=== PATIENT | male | born 1985 | race Caucasian/White ===

== ENCOUNTER 2018-09-02 14:05 | Inpatient (IN) | payer OTHER ==
[~2018-09-02] VITALS: Ht 165.1 cm; Wt 54.0 kg
[2018-09-02 14:17] VITALS: Ht 165.1 cm; Wt 54.0 kg
[2018-09-02] MEDS ORDERED: SODIUM CHLORIDE 0.9% 1L BAG IV* STA (14:22)
[2018-09-02] MEDS ORDERED: VANCOMYCIN 1 GM (PMX) 250 ML IVPB ONE (14:30)
[2018-09-02] MEDS ORDERED: CEFEPIME 1GM/50 ML (PMX) 50 ML IVPB ONE (14:30)
[2018-09-02] MEDS ORDERED: SULF1TAB31 PO (15:38)
[2018-09-02] MEDS ORDERED: ABAC1TAB12 PO (15:38)
[2018-09-02] MEDS ORDERED: IBUP-1542 PO (15:39)
[2018-09-02] MEDS ORDERED: HYDR-3980 PO (15:39)
[2018-09-02] MEDS ORDERED: KETOROLAC 15 MG INJ IV STA (16:20)
[2018-09-02] MEDS ORDERED: ACETAMINOPHEN 325 MG TAB PO ONE (16:30)
--- NOTE | 2018-09-02 16:33 | ERD ---
ER Documentation Chief Complaint Chief Complaint COUGH AND SOB X 5 DAYS BACK PAIN HPI This is a 33-year-old male with a past medical history of HIV/AIDS, previous noncompliance with HIV medication resulting in difficulty managing his disease process now, compliant on his medications over the last several months, previous cryptococcal meningitis, who is now presenting with 5 days of fever, chills, full body aches and pains, chest congestion with a nonproductive cough. The patient does also endorse nausea with several episodes of nonbilious nonbloody vomiting. He has had a decreased appetite over the last several days. He de nies any diarrhea. The patient reports that his symptoms are not similar to when he had cryptococcal meningitis. That said, the patient is concerned about a bad infection. His last CD4 count was less than 150. The patient does not endorse any alleviating or exacerbating factors. The patient has had no headache or vision changes. The patient does not endorse neck or back pain. The patient denies lightheadedness or dizziness. The patient has had no chest pain or trouble breathing. The patient denies abdominal pain. The patient denies changes to bowel movements. The patient has had no focal deficits. The patient has had no weakness or numbness or tingling to the face or extremities. ROS All systems reviewed and are negative except as per history of present illness. Medications Home Meds Reported Medications Hydrocodone/Acetaminophen ([place] 10-325 Tablet) 1 Each Tablet, 1 EACH PO NEEDED PRN for PAIN, TAB 09/02/18 Ibuprofen* (Ibuprofen*) 600 Mg Tablet, 600 MG PO NEEDED PRN for PAIN, TAB 09/02/18 Sulfamethoxazole/Trimethoprim* (Bactrim Ds* Tablet) 1 Each Tablet, 2 TAB PO DAILY, TAB 09/02/18 Abacavir/Dolutegravir/Lamivudi (Triumeq Tablet) 1 Each Tablet, 1 EACH PO DAILY, TAB 09/02/18 Allergies Allergies: Coded Allergies: No Known Allergy (Unverified , 09/02/18) PMhx/Soc History of Surgery: Yes (APPEDECTOMY ) Hx Miscellaneous Medical Probl: Yes (MENINGITIS , AIDS ) Hx Alcohol Use: Yes Hx Substance Use: No Hx Tobacco Use: Yes (MARIJUANA ) Smoking Status: Never smoker FmHx Family History: No diabetes Physical Exam Vitals Vital Signs Date Temp Pulse Resp B/P (MAP) Pulse Ox O2 O2 Flow FiO2 Time Delivery Rate 09/02/18 91 14 127/82 100 Room Air 18:29 (97) 09/02/18 99.9 88 17 124/77 100 Room Air 18:09 (93) 09/02/18 99.1 89 17 125/88 100 Room Air 17:39 (100) 09/02/18 99.9 99 17 106/76 100 Room Air 17:00 (86) 09/02/18 101.7 16:34 09/02/18 101.7 110 16 125/85 100 Room Air 16:19 (98) 09/02/18 101.8 126 28 132/87 98 14:17 (102) Physical Exam Const: No apparent distress, well-developed. Cachectic. Head: Normocephalic, Atraumatic Eyes: Normal Conjunctiva. Extraocular movements intact. Pupils equal, round and reactive to light ENT: Normal External Ears, Nose. Dry mucous membranes. Neck: Full range of motion. No meningismus. Resp: Clear to auscultation bilaterally, No wheezes, rales or rhonchi Cardio: Regular rhythm. Tachycardia. No murmurs, rubs or gallops Abd: Soft, non tender, non distended. Normal bowel sounds Skin: No petechiae or rashes Back: No midline tenderness. No CVA tenderness Ext: No cyanosis, or edema Neur: Awake and alert, oriented 4. Cranial nerves intact. No facial droop. Normal strength, sensation and coordination. Psych: Normal Mood and Affect Result Diagram: 09/02/18 1431 09/02/18 1431 Results 24 hrs Laboratory Tests Test 09/02/18 14:31 09/02/18 14:33 09/02/18 16:40 09/02/18 17:46 White Blood Count 9.6 10^3/ul Red Blood Count 4.43 10^6/ul Hemoglobin 13.1 g/dl Hematocrit 39.4 % Mean Corpuscular 88.9 fl Volume Mean Corpuscular 29.6 pg Hemoglobin Mean Corpuscular 33.2 g/dl Hemoglobin Concent Red Cell 13.5 % Distribution Width Platelet Count 96 10^3/UL Mean Platelet 10.4 fl Volume Immature 1.000 % Granulocytes % Neutrophils % 88.1 % Lymphocytes % 5.3 % Monocytes % 5.4 % Eosinophils % 0.0 % Basophils % 0.2 % Nucleated Red Blood 0.0 /100WBC Cells % Immature 0.100 10^3/ul Granulocytes # Neutrophils # 8.4 10^3/ul Lymphocytes # 0.5 10^3/ul Monocytes # 0.5 10^3/ul Eosinophils # 0.0 10^3/ul Basophils # 0.0 10^3/ul Nucleated Red Blood 0.0 10^3/ul Cells # Prothrombin Time 12.2 Sec Prothrombin Time 1.0 Ratio INR International 0.89 Normalized Ratio Activated 32.6 Sec Partial Thromboplas t Time Sodium Level 131 mmol/L Potassium Level 3.5 mmol/L Chloride Level 94 mmol/L Carbon Dioxide 25 mmol/L Level Anion Gap 12 Blood Urea Nitrogen 15 mg/dl Creatinine 0.93 mg/dl Est Glomerular > 60 mL/min Filtrat Rate mL/min Glucose Level 212 mg/dl Calcium Level 8.9 mg/dl Total Bilirubin 0.5 mg/dl Direct Bilirubin 0.00 mg/dl Indirect Bilirubin 0.5 mg/dl Aspartate Amino 94 IU/L Transf (AST/SGOT) Alanine 57 IU/L Aminotransferase (A LT/SGPT) Alkaline 304 IU/L Phosphatase Troponin I < 0.012 ng/ml Total Protein 9.0 g/dl Albumin 4.1 g/dl Globulin 4.90 g/dl Albumin/Globulin 0.83 Ratio POC Venous Lactate 2.1 mmol/L 2.0 mmol/L Lactic Acid Level 1.6 mmol/L Current Medications Medications Dose Sig/Paola Start Time Status Last (Trade) Ordered Route PRN Stop Time Admin Dose Reason Admin Sodium 1,620 ml BOLUS OVER 2 09/02/18 DC 09/02/18 Chloride HOURS STAT 14:22 14:57 (NS) IV* 09/02/18 14:25 Vancomycin 250 ml @ ONCE ONCE 09/02/18 DC 09/02/18 HCl 125 mls/hr IVPB 14:30 15:55 09/02/18 16:29 Cefepime HCl 50 ml @ ONCE ONCE 09/02/18 DC 09/02/18 100 mls/hr IVPB 14:30 14:57 09/02/18 14:59 Ketorolac 15 mg ONCE STAT 09/02/18 DC 09/02/18 Tromethamine IV 16:20 16:33 (Toradol) 09/02/18 16:23 650 mg ONCE ONCE 09/02/18 DC 09/02/18 Acetaminophen PO 16:30 16:34 (Tylenol 09/02/18 16:31 Tab) Fentanyl 25 mcg ONCE ONCE 09/02/18 09/02/18 (Sublimaze) IV 20:00 19:47 09/02/18 20:01 Ondansetron 4 mg ER BRIDGE 09/02/18 HCl (Zofran PRN IV 20:00 Inj) NAUSEA/VOMITI 09/03/18 19:59 NG 650 mg ER BRIDGE 09/02/18 Acetaminophen PRN PO 20:00 (Tylenol .MILD PAIN 09/03/18 19:59 Tab) 1-3 OR TEMP Procedures/MDM MDM The patient's presentation warrants further investigation. Previous medical records, if available, were reviewed. LABS The patient's laboratory testing was obtained and reviewed. No emergent treatment was required unless described below. CBC: No E/o thrombocytopenia. Mild normocytic anemia, not emergent. White count is at 9.6 with a left shift. Given the patient's history of AIDS, I would have expected leukopenia. This could be leukocytosis relative to his baseline. Chemistry: No E/o severe acidosis or alkalosis or renal failure or diabetic ketoacidosis. Leukocytosis, potentially reactive versus related to his HIV medicines. PT/INR: No E/o significant coagulopathy Lactate: E/o severe sepsis Troponin: No E/o acute ischemia Urine: Pending Influenza: Pending CD4: Pending EKG EKG read by me: Rate/Rhythm: Sinus tachycardia at 118 bpm Intervals: Normal [place]: Normal Impression: No evidence of acute ischemia or arrhythmia IMAGING Imaging and Radiology interpretation reviewed. CXR FINDINGS: The heart and mediastinum are within normal limits. No discrete focal consolidation. There is no pleural effusion or pneumothorax. IMPRESSION: No acute cardiopulmonary process. Electronically viewed and signed by Physician Serge on 09/02/2018 14:44 TREATMENT/DISPOSITION The patient presents with fever, tachycardia and a likely elevated white count as the patient does have AIDS and is likely chronically leukopenic. The patient's lactic acid is elevated. He meets criteria for a systemic inflammatory response and severe sepsis. SEPSIS NOTE SIRS Criteria: Fever, tachycardia Infectious source: Unknown End organ damage indicated by: Lactate > 2.0 mmol/L SEPSIS MANAGEMENT Time to recognize sepsis: Upon Arrival Time to recognize severe sepsis: 1433 Time to recognize septic shock: No septic shock at this time. 3 HOUR BUNDLE Blood cultures x 2 before abx: Yes 30 ml/kg NS bolus completed Initial lactate 2.1 Repeat lactate 1.6 SEPTIC SHOCK ASSESSMENT: NO lactic acid > 4.0 NO persistent hypotension (SBP < 90 or 40 mmHg drop, MAP < 65) despite 30 L/kg IV fluid bolus CRITICAL CARE Critical care time 36 minutes Emergent fluid management while maintaining close respiratory support. Provision of immediate and broad-spectrum antibiotic therapy. Simultaneous assessment for possible sources in order to direct targeted therapy. Conside ration for invasive and chemical support to prevent cardiopulmonary collapse. Critical care time is independent of procedures performed. ADMISSION At this time, I feel that the patient requires admission for further evaluation and management. The patient will be admitted to [facility] in accordance with the patient's insurance. The patient was accepted by Dr. Montero at 7:45 PM on September 02, 2018. Disclaimer: Inadvertent spelling and grammatical errors are likely due to EHR/dictation software use and do not reflect on the overall quality of patient care. Note that the electronic time recorded on this note does not necessarily reflect the actual time of the patient encounter. Departure Diagnosis: Primary Impression: Severe sepsis Additional Impressions: Fever Fever type: unspecified Qualified Codes: R50.9 - Fever, unspecified Tachycardia Lactic acidosis Normocytic anemia Hyponatremia Transaminitis History of AIDS Condition: Serious TIA VORA MD Sep 02, 2018 16:33
[2018-09-02] MEDS ORDERED: ONDANSETRON 4 MG INJ IV PRN (20:00)
[2018-09-02] MEDS ORDERED: ACETAMINOPHEN 325 MG TAB PO PRN (20:00)
[2018-09-02] MEDS ORDERED: FENTAnyl 50 MCG/ML VIAL IV ONE (20:00)
[2018-09-02] MEDS ORDERED: ONDANSETRON 4 MG TAB PO PRN (20:30)
[2018-09-02] MEDS ORDERED: NACL 0.9% 3 ML SYG IV SCH (20:30)
[2018-09-02 20:49] VITALS: PULSE 102
[2018-09-02 20:50] VITALS: BP 137/80; PULSE 100; RESP 20
[2018-09-02] MEDS ORDERED: VANCOMYCIN IV PER PHARMACY XX SCH (21:00)
[2018-09-02] MEDS: FAMOTIDINE 20 MG INJ IV SCH (21:53)
[2018-09-02] MEDS: D5-NS + KCL 20 MEQ 1,000 ML IV SCH (21:53)
[2018-09-02] MEDS: ENOXAPARIN 40 MG/0.4 ML SYG SC SCH (22:05)
[2018-09-02] MEDS: HYDROCODONE/APAP (10/325) TAB PO PRN (22:13)
[2018-09-02] MEDS: CEFEPIME 2GM/50 ML (PMX) 50 ML IVPB SCH (22:19)
[2018-09-03] VITALS (11 sets, daily range): BP systolic 119–157; BP diastolic 77–94; PULSE 71–108; RESP 18–20
[2018-09-03] MEDS: VANCOMYCIN 750 MG (PMX) 250 ML IVPB SCH ×2 (00:44→08:48)
[2018-09-03] MEDS: HYDROCODONE/APAP (10/325) TAB PO PRN ×3 (04:15→19:04)
[2018-09-03] MEDS: D5-NS + KCL 20 MEQ 1,000 ML IV SCH ×3 (05:00→21:00)
[2018-09-03] MEDS ORDERED: ACETAMINOPHEN 325 MG TAB PO PRN (07:00)
[2018-09-03] MEDS ORDERED: POTASSIUM CHLORIDE (SR) 20 MEQ TAB PO ONE (08:00)
[2018-09-03] MEDS: FAMOTIDINE 20 MG INJ IV SCH ×2 (08:43→20:56)
[2018-09-03] MEDS: TRIMETHOPRIM/SULFAMETHOX (DS) TAB PO SCH (08:44)
[2018-09-03] MEDS: DOLUTEGRAVIR PO SCH (08:44)
[2018-09-03] MEDS: LAMIVUDINE PO SCH (08:44)
[2018-09-03] MEDS: [UNRECOGNIZED DRUG - OTHER] PO SCH (08:44)
[2018-09-03] MEDS: ENOXAPARIN 40 MG/0.4 ML SYG SC SCH (08:56)
[2018-09-03] MEDS: CEFEPIME 2GM/50 ML (PMX) 50 ML IVPB SCH (11:33)
[2018-09-03] MEDS: PIPER-TAZO 3.375 GM IV (PMX) 100 ML IVPB SCH ×2 (14:15→21:02)
--- NOTE | 2018-09-03 14:19 | HP ---
DATE OF ADMISSION: 09/02/2018 CHIEF COMPLAINT: Fevers and palpitations. HISTORY OF PRESENT ILLNESS: A 33-year-old male with history of AIDS, presented to emergency room wit h complaint of cough of clear phlegm and shortness of breath x5 days. He also reports back pain. Th e patient has had subjective fevers at home. He has associated nausea, but no abdominal pain or vomi ting. No chest pain. The patient was diagnosed with HIV sometime in 2013. He has had Cryptococcal meningitis and respiratory failure in the past. His last CD4 count was less than 150. Initial evalu ation revealed normal white blood cell count. Basic metabolic panel showed potassium of 2.9. Lactic acid was normal. Blood cultures have grown gram-negative rods. PAST MEDICAL HISTORY: 1. AIDS. 2. History of cryptococcal meningitis. 3. History of pneumonia and respiratory failure. MEDICATIONS PRIOR TO ADMISSION: 1. Triumeq. 2. Bactrim. 3. [place]. 3. Ibuprofen. SOCIAL HISTORY: The patient is a homosexual and has partner. He denies tobacco or alcohol use. PHYSICAL EXAMINATION: GENERAL: Well-developed, well-nourished male who is in no apparent distress. VITAL SIGNS: Stable. He is afebrile. HEENT: Extraocular muscles are intact. Pupils are equal and reactive to light bilaterally. Sclerae are anicteric. Oropharynx is clear and moist. NECK: Supple. No JVD, no carotid bruits. LUNGS: Clear to auscultation bilaterally. CARDIAC: Regular rate and rhythm. No murmurs, rubs or gallops. ABDOMEN: Soft, nontender, nondistended. Normoactive bowel sounds. EXTREMITIES: No clubbing, cyanosis or edema. NEUROLOGICAL: Grossly nonfocal. IMAGING: Chest x-ray: No acute cardiopulmonary process. ASSESSMENT: 1. A 33-year-old male with gram-negative rods bacteremia of unclear source. 2. Acquired immunodeficiency syndrome with last CD4 count of less than 150. 3. Hypokalemia. PLAN: 1. Admit to med/surg. 2. Discontinue IV vancomycin and start IV Zosyn. 3. Check final blood culture results. 4. IV consultation was requested. Dictated By: RAJ LOVELL/BETO Conf#: [id number] DID#: [id number] CC: HEATHER TRIVEDI MD;*[facility]*
--- NOTE | 2018-09-03 15:40 | CONS ---
DATE OF ADMISSION: 09/02/2018 DATE OF CONSULTATION: 09/03/2018 TYPE OF CONSULTATION: Infectious disease. REASON FOR CONSULTATION: Antibiotic management. HISTORY OF PRESENT ILLNESS: Jassi Kerr is a 33-year-old male who comes in with cough a nd shortness of breath of 5 days' duration associated with back pain. The patient has a history of H IV/AIDS, previous noncompliance with HIV medication, compliant on his medications over the last sever al months, history of previous Cryptococcal meningitis, now presents with 5 days of chills, full body aches and pains, chest congestion, nonproductive cough, had nausea, several episodes of nonbilious, nonbloody vomiting, decreased appetite in the last several days. He reports that his symptoms are no t similar to when he had Cryptococcal meningitis. He is concerned about infection. His last CD4 cou nt was less than 150. The patient has no headaches or double vision. He denies abdominal pain. PAST MEDICAL HISTORY: Status post appendectomy, history of Cryptococcal meningitis and AIDS. FAMILY HISTORY: Noncontributory. SOCIAL HISTORY: He does drink. He does use marijuana. He does not smoke cigarettes. PHYSICAL EXAMINATION: VITAL SIGNS: T-max of 101.8. SKIN: Without generalized rash. HEENT: Within normal limits. He is cachectic. NECK: Supple. LYMPH NODES: None palpable. CHEST: Decreased breath sounds at the bases. HEART: He is tachycardic. ABDOMEN: Soft, nontender without organosplenomegaly or masses. EXTREMITIES: Without cyanosis, clubbing or edema. RECTAL AND GENITAL: Deferred. NEUROLOGICAL: No focal neurological abnormality. HOSPITAL COURSE: His white count is 9.6, H and H of 13.1 and 39.4, platelet count of 96,000. BUN an d creatinine is 15/0.93. His glucose is . He has 88% neutrophils, no bands. The patient was s tarted on vancomycin and cefepime. Chest x-ray: No acute cardiopulmonary process. IMPRESSION AND PLAN: The patient presents with fever, tachycardia, elevated white count. He has sys temic inflammatory response syndrome. He is on trimethoprim sulfa. He is on Triumeq which is abacav ir, dolutegravir and lamivudine and that should be continued. He also should have a fever workup and his blood cultures, urine, influenza A and B are all pending. His blood cultures are positive for g korey-negative rods which in a sense is a good thing because we can treat that. He was on vancomycin a nd cefepime. He is on Zosyn at the present time along with trimethoprim sulfa and hopefully Triumeq. I will dictate my findings to the hospitalist. Dictated By: JYACE SHEPARD MD, JD/NTS Conf#: [id number] DID#: [id number] CC: HEATHER TRIVEDI MD;*End*
[2018-09-03] MEDS: FLUCONAZOLE 200 MG TAB PO SCH (15:48)
[2018-09-03] MEDS: HYDROmorphONE 0.5 MG/0.5 ML SYG IV PRN ×2 (16:01→20:57)
[2018-09-03] MEDS: ONDANSETRON 4 MG INJ IV PRN (20:56)
[2018-09-03] MEDS ORDERED: FAMOTIDINE 20 MG TAB PO SCH (21:00)
[2018-09-04] VITALS (13 sets, daily range): BP systolic 125–153; BP diastolic 72–91; PULSE 66–87; RESP 18
[2018-09-04] MEDS: ONDANSETRON 4 MG INJ IV PRN (02:40)
[2018-09-04] MEDS: HYDROmorphONE 0.5 MG/0.5 ML SYG IV PRN ×2 (03:17→20:30)
[2018-09-04] MEDS: D5-NS + KCL 20 MEQ 1,000 ML IV SCH ×4 (05:00→20:31)
[2018-09-04] MEDS: PIPER-TAZO 3.375 GM IV (PMX) 100 ML IVPB SCH ×3 (05:04→21:38)
--- NOTE | 2018-09-04 08:25 | PN ---
Date/Time of Note Date/Time of Note DATE: 09/04/18 TIME: 08:23 Subjective Doing well. Back pain is resolved. No abdominal pain, nausea, or vomiting Objective Vitals Vital Signs Date Temp Pulse Resp B/P (MAP) Pulse Ox O2 O2 Flow FiO2 Time Delivery Rate 09/04/18 66 08:12 09/04/18 98.2 18 125/85 95 07:34 (98) 09/04/18 Room Air 04:39 Intake and Output 09/03/18 09/03/18 09/04/18 1515:00 23:00 07:00 IntakeIntake Total 300 ml 300 ml 1925 ml OutputOutput Total 600 ml 2 ml BalanceBalance 300 ml -300 ml 1923 ml Lungs clear to auscultation bilaterally Cardiac regular rate and rhythm Abdomen soft nontender nondistended normoactive bowel sounds Extremities no clubbing cyanosis or edema Neurological nonfocal Results Result Diagram: 09/03/18 0509 09/04/18 0517 Medications Medications Current Medications Acetaminophen/ Hydrocodone Bitart ([place] (10/325)) 1 tab Q6 PRN PO PAIN Last administered on 09/03/18at 19:04; Admin Dose 1 TAB; Start 09/02/18 at 20:30 Trimethoprim/ Sulfamethoxazole (Bactrim (Ds)) 2 tab DAILY PO Last administered on 09/03/18 08:44; Admin Dose 2 TAB; Start 09/03/18 at 09:00 Patient Own Medication 1 ea DAILY PO Last administered on 09/03/18 08:44; Admin Dose 1 EA; Start 09/03/18 at 09:00 IV Flush (NS 3 ml) 3 ml PER PROTOCOL IV ; Start 09/02/18 at 20:30 Enoxaparin Sodium (Lovenox) 40 mg DAILY SC Last administered on 09/02/18at 22:05; Admin Dose 40 MG; Start 09/02/18 at 22:00 Potassium Chloride/Dextrose/ Sod Cl 1,000 ml @ 125 mls/hr Q8H IV Last administered on 09/03/18at 12:47; Admin Dose 125 MLS/HR; Start 09/02/18 at 21:00 Acetaminophen (Tylenol Tab) 650 mg Q6H PRN PO MILD PAIN(1-3)OR ELEVATED TEMP Last administered on 09/04/18at 04:54; Admin Dose 650 MG; Start 09/03/18 at 07:00 Piperacillin Sod/ Tazobactam Sod 100 ml @ 200 mls/hr Q8 IVPB Last administered on 09/04/18at 05:04; Admin Dose 200 MLS/HR; Start 09/03/18 at 14:00 Hydromorphone HCl (Dilaudid) 0.5 mg Q3H PRN IV SEVERE PAIN LEVEL 7-10 Last administered on 09/04/18at 03:17; Admin Dose 0.5 MG; Start 09/03/18 at 13:00 Fluconazole (Diflucan) 400 mg DAILY PO Last administered on 09/03/18at 15:48; Admin Dose 400 MG; Start 09/03/18 at 14:30 Famotidine (Pepcid Iv) 20 mg BID IV Last administered on 09/03/18at 20:56; Admin Dose 20 MG; Start 09/03/18 at 21:00 Ondansetron HCl (Zofran Inj) 4 mg Q4H PRN IV NAUSEA AND/OR VOMITING Last administered on 09/04/18at 02:40; Admin Dose 4 MG; Start 09/03/18 at 20:00 VTE Prophylaxis Risk score (from Nsg)>0 risk: 4 SCD applied (from Nsg): Yes Lines/Catheters IV Catheter Type: Saline Lock Bert[place] in Place: No Assessment/Plan Assessment/Plan 33-year-old male with gram-negative [place] urosepsis AIDS with CD4 count less than 150 History of opportunistic infections Continue IV Zosyn Check final blood and urine culture results Continue antiretroviral Infectious disease follow-up Discharge planning over the weekend RAJ BARAHONA MD Sep 04, 2018 08:25
[2018-09-04] MEDS: ENOXAPARIN 40 MG/0.4 ML SYG SC SCH (09:00)
[2018-09-04] MEDS: LAMIVUDINE PO SCH (09:12)
[2018-09-04] MEDS: TRIMETHOPRIM/SULFAMETHOX (DS) TAB PO SCH (09:12)
[2018-09-04] MEDS: [UNRECOGNIZED DRUG - OTHER] PO SCH (09:12)
[2018-09-04] MEDS: FLUCONAZOLE 200 MG TAB PO SCH (09:12)
[2018-09-04] MEDS: DOLUTEGRAVIR PO SCH (09:12)
[2018-09-04] MEDS: FAMOTIDINE 20 MG INJ IV SCH ×2 (09:12→20:30)
--- NOTE | 2018-09-04 13:54 | CONS ---
Assessment/Plan Assessment/Plan Hospital Course (Demo Recall) Patient is alert feels better now his appetite is back he is in no distress, had a fever of 101.1 this morning but currently afebrile. No labs this morning Microbiology: Blood and urine culture growing gram-negative le[place]. Chest x-ray on admission revealed no acute cardiopulmonary process Antimicrobials: Fluconazole Zosyn, Bactrim, Triumeq Physical examination: This is a wasted well-developed middle-aged man who is alert in no distress. Head atraumatic normocephalic neck is supple chest rise symmetrical breath sounds clear heart S1-S2 abdomen soft bowel sounds present extremities without cyanosis edema Assessment: 1. Sepsis, present on admission 2. Acute pyelonephritis 3. Bacteremia secondary to #2 4. AIDS 5. History of cryptococcal meningitis Plan: The patient is doing much better, continue present care antibiotics, follow final blood cultures, add Zithromax weekly Consultation Date/Type/Reason Admit Date/Time Sep 02, 2018 at 19:41 Initial Consult Date Type of Consult id Date/Time of Note DATE: 09/04/18 TIME: 13:54 Exam/Review of Systems Exam Vitals Vital Signs Date Temp Pulse Resp B/P (MAP) Pulse Ox O2 O2 Flow FiO2 Time Delivery Rate 09/04/18 86 12:10 09/04/18 98.0 18 153/91 95 11:49 (111) 09/04/18 Room Air 04:39 Intake and Output 09/03/18 09/03/18 09/04/18 1515:00 23:00 07:00 IntakeIntake Total 300 ml 300 ml 1925 ml OutputOutput Total 600 ml 2 ml BalanceBalance 300 ml -300 ml 1923 ml Results Result Diagram: 09/03/18 0509 09/04/18 0517 Results 24hrs Laboratory Tests Test 09/04/18 05:17 Sodium Level 134 L Potassium Level 3.2 L Chloride Level 106 Carbon Dioxide Level 22 Anion Gap 6 Blood Urea Nitrogen 5 L Creatinine 0.70 Est Glomerular Filtrat Rate mL/min > 60 Glucose Level 135 Calcium Level 8.5 Medications Medication Current Medications Acetaminophen/ Hydrocodone Bitart ([place] (10/325)) 1 tab Q6 PRN PO PAIN Last administered on 09/03/18at 19:04; Admin Dose 1 TAB; Start 09/02/18 at 20:30 Trimethoprim/ Sulfamethoxazole (Bactrim (Ds)) 2 tab DAILY PO Last administered on 09/04/18 09:12; Admin Dose 2 TAB; Start 09/03/18 at 09:00 Patient Own Medication 1 ea DAILY PO Last administered on 09/04/18 09:12; Admin Dose 1 EA; Start 09/03/18 at 09:00 IV Flush (NS 3 ml) 3 ml PER PROTOCOL IV ; Start 09/02/18 at 20:30 Enoxaparin Sodium (Lovenox) 40 mg DAILY SC Last administered on 09/02/18 22:05; Admin Dose 40 MG; Start 09/02/18 at 22:00 Potassium Chloride/Dextrose/ Sod Cl 1,000 ml @ 125 mls/hr Q8H IV Last administered on 09/04/18 11:04; Admin Dose 125 MLS/HR; Start 09/02/18 at 21:00 Acetaminophen (Tylenol Tab) 650 mg Q6H PRN PO MILD PAIN(1-3)OR ELEVATED TEMP Last administered on 09/04/18 04:54; Admin Dose 650 MG; Start 09/03/18 at 07:00 Piperacillin Sod/ Tazobactam Sod 100 ml @ 200 mls/hr Q8 IVPB Last administered on 09/04/18 05:04; Admin Dose 200 MLS/HR; Start 09/03/18 at 14:00 Hydromorphone HCl (Dilaudid) 0.5 mg Q3H PRN IV SEVERE PAIN LEVEL 7-10 Last administered on 09/04/18 03:17; Admin Dose 0.5 MG; Start 09/03/18 at 13:00 Fluconazole (Diflucan) 400 mg DAILY PO Last administered on 09/04/18 09:12; Admin Dose 400 MG; Start 09/03/18 at 14:30 Famotidine (Pepcid Iv) 20 mg BID IV Last administered on 09/04/18 09:12; Admin Dose 20 MG; Start 09/03/18 at 21:00 Ondansetron HCl (Zofran Inj) 4 mg Q4H PRN IV NAUSEA AND/OR VOMITING Last administered on 09/04/18 02:40; Admin Dose 4 MG; Start 09/03/18 at 20:00 AZALEA HUBER NP Sep 04, 2018 13:54
[2018-09-04] MEDS ORDERED: AZITHROMYCIN 600 MG TAB PO SCH (15:00)
[2018-09-04] MEDS ORDERED: FAMOTIDINE 20 MG TAB PO SCH (21:00)
[2018-09-04] MEDS: HYDROCODONE/APAP (10/325) TAB PO PRN (21:46)
[2018-09-05] VITALS (13 sets, daily range): BP systolic 129–159; BP diastolic 67–94; PULSE 54–87; RESP 18
[2018-09-05] MEDS: D5-NS + KCL 20 MEQ 1,000 ML IV SCH ×3 (05:37→20:48)
[2018-09-05] MEDS: PIPER-TAZO 3.375 GM IV (PMX) 100 ML IVPB SCH ×3 (05:37→23:38)
[2018-09-05] MEDS: TRIMETHOPRIM/SULFAMETHOX (DS) TAB PO SCH (08:04)
[2018-09-05] MEDS: FLUCONAZOLE 200 MG TAB PO SCH (08:04)
[2018-09-05] MEDS: FAMOTIDINE 20 MG INJ IV SCH (08:05)
[2018-09-05] MEDS: LAMIVUDINE PO SCH (08:05)
[2018-09-05] MEDS: DOLUTEGRAVIR PO SCH (08:05)
[2018-09-05] MEDS: [UNRECOGNIZED DRUG - OTHER] PO SCH (08:05)
[2018-09-05] MEDS: ENOXAPARIN 40 MG/0.4 ML SYG SC SCH ×2 (08:08→09:00)
[2018-09-05] MEDS ORDERED: CEFTRIAXONE 1 GM/50 ML (PMX) 50 ML IVPB ONE (10:00)
--- NOTE | 2018-09-05 10:12 | PN ---
Date/Time of Note Date/Time of Note DATE: 09/05/18 TIME: 10:11 Assessment/Plan VTE Prophylaxis Risk score (from Nsg)>0 risk: 3 SCD applied (from Ns): No SCD contraindicated: low risk/ambulating Pharmacological prophylaxis: LMWH Lines/Catheters IV Catheter Type (from [facility]): Peripheral IV Urinary Cath still in place: No Assessment/Plan Assessment/Plan 1. 33-year-old man admitted for nausea and emesis, now doing better. Gram- negative leander urosepsis, now showing ESBL in urine and blood cultures, sensitive only to Zosyn and cefepime. Now day 3 on Zosyn 2. Patient had a >2 sec pause this morning on telemetry, and demonstrated 3rd degree heart block on EKG. Asymptomatic. 3. Chest disoomfort, but it appears to be all costochondritis on exam with diffuse tenderness -- likely secondary to bacteremia 4. AIDS with CD4 count less than 150 cells/ul 5. History of opportunistic infections 6. Hypokalemia last two days 7. Low TSH 8. Palatal petechiiae/purpura -- possible KS, no other bruising seen. Normal platelets. 9. Urosepsis with ESBL. Left CVA tenderness on exam today. Concern for hydronephrosis. * Spoke with Dr. Karen Pang, covering for the [facility], and she will evaluate him today for cardiology. * Recheck electrolytes, including magnesium, STAT. Also CBC and Free T4 * Continue IV Zosyn; will follow-up on ID recommendations from Dr. Fay * Continue Bactrim, fluconazole, weekly azithromycin * Continue antiretroviral -- patient's own Triumeq * Renal ultrasound to eval for left-sided hydronephrosis * Lovenox for DVT prophylaxis; switch famotidine from IV to PO for GI protection * Discharge planning: may require placement for continued IV antibiotics Zahida Montero MD PhD [phone] Result Diagram: 09/03/18 0509 09/04/18 0517 Subjective 24 Hr Interval Summary Free Text/Dictation [facility] Complaining of diffuse chest discomfort this morning, amidst general achiness all over. Some dizziness when he gets up. Not aware of any palpitations lying in bed. No previous cardiac disease history. Still with loose stools, but no blood per rectum. No breakfast this morning, but he ate well yesterday. His partner José was at bedside; he is receiving antibiotics for non-diabetic leg cellulitis. Exam/Review of Systems Exam Vitals Vital Signs Date Temp Pulse Resp B/P (MAP) Pulse Ox O2 O2 Flow FiO2 Time Delivery Rate 09/05/18 72 09:30 09/05/18 98.4 18 147/93 100 Room Air 07:30 (111) Intake and Output 09/04/18 09/04/18 09/05/18 1515:00 23:00 07:00 IntakeIntake Total 360 ml 2300 ml 1900 ml OutputOutput Total 1 ml 4 ml 3 ml BalanceBalance 359 ml 2296 ml 1897 ml Exam GENERAL: Well-developed, well-nourished, mildly uncomfortable-appearing. Afebrile. HEENT: Extraocular muscles are intact. Pupils are equal and reactive to light bilaterally. Sclerae are anicteric. Oropharynx is without ulceration, but he has mild palatal purpura. No thrush. NECK: Supple. No JVD. CHEST: Clear to auscultation bilaterally. Moderate diffuse tenderness of both right and left anterior chest to palpation. CARDIAC: Regular rhythm, normal rate. No murmur. Good peripheral perfusion ABDOMEN: Soft, non-tender, non-distended. Normoactive bowel sounds. UG: Moderate left CVA tenderness EXTREMITIES: No clubbing, cyanosis or edema. No arthritis NEUROLOGICAL: Alert, oriented, cranial nerves intact. Moving all extremities. Intact speech and memory. Appropriate affect. Medications Medication Current Medications Acetaminophen/ Hydrocodone Bitart ([place] (10/325)) 1 tab Q6 PRN PO PAIN Last administered on 09/04/18at 21:46; Admin Dose 1 TAB; Start 09/02/18 at 20:30 Patient Own Medication 1 ea DAILY PO Last administered on 09/05/18at 08:05; Admin Dose 1 EA; Start 09/03/18 at 09:00 IV Flush (NS 3 ml) 3 ml PER PROTOCOL IV ; Start 09/02/18 at 20:30 Enoxaparin Sodium (Lovenox) 40 mg DAILY SC Last administered on 09/05/18at 08:08; Admin Dose 40 MG; Start 09/02/18 at 22:00 Potassium Chloride/Dextrose/ Sod Cl 1,000 ml @ 125 mls/hr Q8H IV Last administered on 09/05/18 05:37; Admin Dose 125 MLS/HR; Start 09/02/18 at 21:00 Acetaminophen (Tylenol Tab) 650 mg Q6H PRN PO MILD PAIN(1-3)OR ELEVATED TEMP Last administered on 09/04/18 04:54; Admin Dose 650 MG; Start 09/03/18 at 07:00 Piperacillin Sod/ Tazobactam Sod 100 ml @ 200 mls/hr Q8 IVPB Last administered on 09/05/18 05:37; Admin Dose 200 MLS/HR; Start 09/03/18 at 14:00 Hydromorphone HCl (Dilaudid) 0.5 mg Q3H PRN IV SEVERE PAIN LEVEL 7-10 Last administered on 09/04/18 20:30; Admin Dose 0.5 MG; Start 09/03/18 at 13:00 Ondansetron HCl (Zofran Inj) 4 mg Q4H PRN IV NAUSEA AND/OR VOMITING Last admini stered on 09/04/18 02:40; Admin Dose 4 MG; Start 09/03/18 at 20:00 Trimethoprim/ Sulfamethoxazole (Bactrim (Ds)) 1 tab DAILY PO Last administered on 09/05/18 08:04; Admin Dose 1 TAB; Start 09/05/18 at 09:00 Azithromycin (Zithromax) 1,200 mg Q7D PO Last administered on 09/04/18 15:17; Admin Dose 1,200 MG; Start 09/04/18 at 15:00 Fluconazole (Diflucan) 200 mg DAILY PO Last administered on 09/05/18 08:04; Admin Dose 200 MG; Start 09/05/18 at 09:00 Famotidine (Pepcid Iv) 20 mg BID IV Last administered on 09/05/18 08:05; Admin Dose 20 MG; Start 09/04/18 at 21:00 Ceftriaxone Sodium 50 ml @ 100 mls/hr ONCE ONCE IVPB ; Start 09/05/18 at 10:00; Stop 09/05/18 at 10:29; Status HEATHER SEBASTIAN M.D. Sep 05, 2018 10:12
[2018-09-05] MEDS: HYDROmorphONE 0.5 MG/0.5 ML SYG IV PRN ×3 (11:09→21:44)
--- NOTE | 2018-09-05 13:04 | CONS ---
Assessment/Plan Assessment/Plan Hospital Course (Demo Recall) Patient is alert looks comfortable still with bilateral flank pain more on the left and difficulty with initiating urination, no fevers overnight. WBC 3.7 platelets 128 neutrophils 55 BUN 4 creatinine 0.64 Microbiology: Blood and urine culture growing E. coli ESBL with good susceptibility to Zosyn. Antimicrobials: Zosyn, fluconazole, Bactrim, Zithromax weekly dose Triumeq Physical examination: This is a wasted well-developed middle-aged man who is alert in no distress. Head atraumatic normocephalic neck is supple chest rise symmetrical breath sounds clear heart S1-S2 abdomen soft bowel sounds present extremities without cyanosis edema Assessment: 1. Sepsis, present on admission 2. Acute pyelonephritis 3. Bacteremia secondary to #2 4. AIDS 5. History of cryptococcal meningitis Plan: Remains stable, on appropriate antibiotic regimen, will repeat blood cultures today, await for clinical improvement. Anticipate treating with current antibiotics to complete 2 weeks. MJ pt Consultation Date/Type/Reason Admit Date/Time Sep 02, 2018 at 19:41 Initial Consult Date Type of Consult id Date/Time of Note DATE: 09/05/18 TIME: 13:02 Exam/Review of Systems Exam Vitals Vital Signs Date Temp Pulse Resp B/P (MAP) Pulse Ox O2 O2 Flow FiO2 Time Delivery Rate 09/05/18 77 12:22 09/05/18 98.1 18 142/90 100 Room Air 11:30 (107) Intake and Output 09/04/18 09/04/18 09/05/18 1515:00 23:00 07:00 IntakeIntake Total 360 ml 2300 ml 1900 ml OutputOutput Total 1 ml 4 ml 3 ml BalanceBalance 359 ml 2296 ml 1897 ml Results Result Diagram: 09/05/18 1118 09/05/18 1118 Results 24hrs Laboratory Tests Test 09/05/18 11:18 White Blood Count 3.7 #L Red Blood Count 3.40 L Hemoglobin 10.1 L Hematocrit 31.0 L Mean Corpuscular Volume 91.2 Mean Corpuscular Hemoglobin 29.7 Mean Corpuscular Hemoglobin Concent 32.6 Red Cell Distribution Width 14.0 Platelet Count 128 #L Mean Platelet Volume 10.7 H Immature Granulocytes % 1.100 H Neutrophils % 55.0 Lymphocytes % 26.8 Monocytes % 15.2 H Eosinophils % 1.6 Basophils % 0.3 Nucleated Red Blood Cells % 0.0 Immature Granulocytes # 0.040 H Neutrophils # 2.0 Lymphocytes # 1.0 Monocytes # 0.6 Eosinophils # 0.1 Basophils # 0.0 Nucleated Red Blood Cells # 0.0 Sodium Level 137 Potassium Level 4.2 Chloride Level 106 Carbon Dioxide Level 22 Anion Gap 9 Blood Urea Nitrogen 4 L Creatinine 0.64 Est Glomerular Filtrat Rate mL/min > 60 Glucose Level 104 Calcium Level 8.4 Magnesium Level 1.7 Free Thyroxine 1.12 Medications Medication Current Medications Acetaminophen/ Hydrocodone Bitart ([place] ()) 1 tab Q6 PRN PO PAIN Last administered on 09/04/18 21:46; Admin Dose 1 TAB; Start 09/02/18 at 20:30 Patient Own Medication 1 ea DAILY PO Last administered on 09/05/18 08:05; Admin Dose 1 EA; Start 09/03/18 at 09:00 IV Flush (NS 3 ml) 3 ml PER PROTOCOL IV ; Start 09/02/18 at 20:30 Enoxaparin Sodium (Lovenox) 40 mg DAILY SC Last administered on 09/02/18at 22:05; Admin Dose 40 MG; Start 09/02/18 at 22:00 Potassium Chloride/Dextrose/ Sod Cl 1,000 ml @ 125 mls/hr Q8H IV Last administered on 09/05/18at 05:37; Admin Dose 125 MLS/HR; Start 09/02/18 at 21:00 Acetaminophen (Tylenol Tab) 650 mg Q6H PRN PO MILD PAIN(1-3)OR ELEVATED TEMP Last administered on 09/04/18at 04:54; Admin Dose 650 MG; Start 09/03/18 at 07:00 Piperacillin Sod/ Tazobactam Sod 100 ml @ 200 mls/hr Q8 IVPB Last administered on 09/05/18 05:37; Admin Dose 200 MLS/HR; Start 09/03/18 at 14:00 Hydromorphone HCl (Dilaudid) 0.5 mg Q3H PRN IV SEVERE PAIN LEVEL 7-10 Last administered on 09/05/18at 11:09; Admin Dose 0.5 MG; Start 09/03/18 at 13:00 Ondansetron HCl (Zofran Inj) 4 mg Q4H PRN IV NAUSEA AND/OR VOMITING Last a dministered on 09/04/18 02:40; Admin Dose 4 MG; Start 09/03/18 at 20:00 Trimethoprim/ Sulfamethoxazole (Bactrim (Ds)) 1 tab DAILY PO Last administered on 09/05/18 08:04; Admin Dose 1 TAB; Start 09/05/18 at 09:00 Azithromycin (Zithromax) 1,200 mg Q7D PO Last administered on 09/04/18at 15:17; Admin Dose 1,200 MG; Start 09/04/18 at 15:00 Fluconazole (Diflucan) 200 mg DAILY PO Last administered on 09/05/18 08:04; Admin Dose 200 MG; Start 09/05/18 at 09:00 Famotidine (Pepcid) 20 mg BID PO ; Start 09/05/18 at 21:00 AZALEA HUBER NP Sep 05, 2018 13:04
[2018-09-05] MEDS ORDERED: MAGNESIUM SULFATE 2 GM/50 ML 50 ML IVPB ONE (19:00)
[2018-09-05] MEDS: ONDANSETRON 4 MG INJ IV PRN (19:15)
--- NOTE | 2018-09-05 19:23 | CONS ---
Assessment/Plan Assessment/Plan Hospital Course (Demo Recall) 33 yo with HIV and sepsis with nausea/vomiting now with bradyarrhythmias. Bradycardia likely secondary to patient discomfort and nausea leading to increased vagal tone and hyopmagnesemia Recommendation: Treat nausea Replete Mg Observe rhythm, it should improve Consultation Date/Type/Reason Admit Date/Time Sep 02, 2018 at 19:41 Date of Consultation: Sep 05, 2018 Type of Consult Cardiology Reason for Consultation bradycardia Requesting Provider: HEATHER TRIVEDI M.D. Date/Time of Note DATE: 09/05/18 TIME: 19:18 Hx of Present Illness 33 yo with HIV admitted with sepsis, who since last night and today has had significant bradycardia. He has been noted to have sinus lj with normal pr intervals, then periods of sinus bradycardia and junctional bradycardia, and possibly short episodes of AV dissociation. He feels very unwell, nausea and vomiting. Also of note Mg is 1.7. Interestingly, on presentation he was tachycardic. Constitutional: poor po Eyes: no complaints ENT: no complaints Respiratory: no complaints Cardiovascular: no complaints Gastrointestinal: diarrhea, nausea, vomiting Genitourinary: no complaints Musculoskeletal: no complaints Skin: no complaints Neurologic: no complaints Endocrine: no complaints Psychological: no complaints Past Medical History Medical History: other (HIV) Home Meds Reported Medications Hydrocodone/Acetaminophen ([place] 10-325 Tablet) 1 Each Tablet, 1 EACH PO NEEDED PRN for PAIN, TAB 09/02/18 Ibuprofen* (Ibuprofen*) 600 Mg Tablet, 600 MG PO NEEDED PRN for PAIN, TAB 09/02/18 Sulfamethoxazole/Trimethoprim* (Bactrim Ds* Tablet) 1 Each Tablet, 2 TAB PO DAILY, TAB 09/02/18 Abacavir/Dolutegravir/Lamivudi (Triumeq Tablet) 1 Each Tablet, 1 EACH PO DAILY, TAB 09/02/18 Medications Current Medications Acetaminophen/ Hydrocodone Bitart ([place] (10/325)) 1 tab Q6 PRN PO PAIN Last administered on 09/04/18at 21:46; Admin Dose 1 TAB; Start 09/02/18 at 20:30 Patient Own Medication 1 ea DAILY PO Last administered on 09/05/18at 08:05; Admin Dose 1 EA; Start 09/03/18 at 09:00 IV Flush (NS 3 ml) 3 ml PER PROTOCOL IV ; Start 09/02/18 at 20:30 Enoxaparin Sodium (Lovenox) 40 mg DAILY SC Last administered on 09/02/18at 22:05; Admin Dose 40 MG; Start 09/02/18 at 22:00 Potassium Chloride/Dextrose/ Sod Cl 1,000 ml @ 125 mls/hr Q8H IV Last administered on 09/05/18 05:37; Admin Dose 125 MLS/HR; Start 09/02/18 at 21:00 Acetaminophen (Tylenol Tab) 650 mg Q6H PRN PO MILD PAIN(1-3)OR ELEVATED TEMP Last administered on 09/04/18 04:54; Admin Dose 650 MG; Start 09/03/18 at 07:00 Piperacillin Sod/ Tazobactam Sod 100 ml @ 200 mls/hr Q8 IVPB Last administered on 09/05/18at 13:04; Admin Dose 200 MLS/HR; Start 09/03/18 at 14:00 Hydromorphone HCl (Dilaudid) 0.5 mg Q3H PRN IV SEVERE PAIN LEVEL 7-10 Last administered on 09/05/18at 16:56; Admin Dose 0.5 MG; Start 09/03/18 at 13:00 Ondansetron HCl (Zofran Inj) 4 mg Q4H PRN IV NAUSEA AND/OR VOMITING Last a dministered on 09/05/18at 19:15; Admin Dose 4 MG; Start 09/03/18 at 20:00 Trimethoprim/ Sulfamethoxazole (Bactrim (Ds)) 1 tab DAILY PO Last administered on 09/05/18 08:04; Admin Dose 1 TAB; Start 09/05/18 at 09:00 Azithromycin (Zithromax) 1,200 mg Q7D PO Last administered on 09/04/18 15:17; Admin Dose 1,200 MG; Start 09/04/18 at 15:00 Fluconazole (Diflucan) 200 mg DAILY PO Last administered on 09/05/18at 08:04; Admin Dose 200 MG; Start 09/05/18 at 09:00 Famotidine (Pepcid) 20 mg BID PO ; Start 09/05/18 at 21:00 Magnesium Sulfate 50 ml @ 25 mls/hr ONCE ONCE IVPB ; Start 09/05/18 at 19:00; Stop 09/05/18 at 20:59 Allergies: Coded Allergies: No Known Allergy (Unverified , 09/02/18) Family History Significant Family History: no pertinent family hx Social History Smoking Status: Former smoker Exam/Review of Systems Vital Signs Vitals Vital Signs Date Temp Pulse Resp B/P (MAP) Pulse Ox O2 O2 Flow FiO2 Time Delivery Rate 09/05/18 61 16:23 09/05/18 98.3 18 142/90 100 Room Air 15:35 (107) Intake and Output 09/04/18 09/04/18 09/05/18 1515:00 23:00 07:00 IntakeIntake Total 360 ml 2300 ml 1900 ml OutputOutput Total 1 ml 4 ml 3 ml BalanceBalance 359 ml 2296 ml 1897 ml Exam Constitutional: alert, oriented, other (thin) Psych: nl mood/affect Head: normocephalic, atraumatic Eyes: nl conjunctiva, EOMI, nl lids, nl sclera ENMT: nl external ears & nose, nl lips & teeth, nl nasal mucosa & septum Neck: supple; No jvd, No bruits Respiratory: clear to auscultation, normal air movement Cardiovascular: regular rate and rhythm, nl pulses; No murmurs/extra sounds Gastrointestinal: soft, nl liver, spleen, non-tender Musculoskeletal: nl extremities to inspection Extremities: normal pulses; No edema Neurological: nl mental status, nl speech Skin: nl turgor; No rash or lesions Labs Result Diagram: 09/05/18 1118 09/05/18 1118 Results 24hrs Laboratory Tests Test 09/05/18 11:18 White Blood Count 3.7 #L Red Blood Count 3.40 L Hemoglobin 10.1 L Hematocrit 31.0 L Mean Corpuscular Volume 91.2 Mean Corpuscular Hemoglobin 29.7 Mean Corpuscular Hemoglobin Concent 32.6 Red Cell Distribution Width 14.0 Platelet Count 128 #L Mean Platelet Volume 10.7 H Immature Granulocytes % 1.100 H Neutrophils % 55.0 Lymphocytes % 26.8 Monocytes % 15.2 H Eosinophils % 1.6 Basophils % 0.3 Nucleated Red Blood Cells % 0.0 Immature Granulocytes # 0.040 H Neutrophils # 2.0 Lymphocytes # 1.0 Monocytes # 0.6 Eosinophils # 0.1 Basophils # 0.0 Nucleated Red Blood Cells # 0.0 Sodium Level 137 Potassium Level 4.2 Chloride Level 106 Carbon Dioxide Level 22 Anion Gap 9 Blood Urea Nitrogen 4 L Creatinine 0.64 Est Glomerular Filtrat Rate mL/min > 60 Glucose Level 104 Calcium Level 8.4 Magnesium Level 1.7 Free Thyroxine 1.12 Imaging Imaging EKG on presentation with sinus tachycardia Telemetry reviewed from today, with nsr, junctional rhythm, and brief av dissociation Medications Medications Current Medications Acetaminophen/ Hydrocodone Bitart ([place] (10)) 1 tab Q6 PRN PO PAIN Last administered on 09/04/18 21:46; Admin Dose 1 TAB; Start 09/02/18 at 20:30 Patient Own Medication 1 ea DAILY PO Last administered on 09/05/18 08:05; Admin Dose 1 EA; Start 09/03/18 at 09:00 IV Flush (NS 3 ml) 3 ml PER PROTOCOL IV ; Start 09/02/18 at 20:30 Enoxaparin Sodium (Lovenox) 40 mg DAILY SC Last administered on 09/02/18at 2 2:05; Admin Dose 40 MG; Start 09/02/18 at 22:00 Potassium Chloride/Dextrose/ Sod Cl 1,000 ml @ 125 mls/hr Q8H IV Last administered on 09/05/18 05:37; Admin Dose 125 MLS/HR; Start 09/02/18 at 21:00 Acetaminophen (Tylenol Tab) 650 mg Q6H PRN PO MILD PAIN(1-3)OR ELEVATED TEMP Last administered on 09/04/18 04:54; Admin Dose 650 MG; Start 09/03/18 at 07:00 Piperacillin Sod/ Tazobactam Sod 100 ml @ 200 mls/hr Q8 IVPB Last administered on 09/05/18 13:04; Admin Dose 200 MLS/HR; Start 09/03/18 at 14:00 Hydromorphone HCl (Dilaudid) 0.5 mg Q3H PRN IV SEVERE PAIN LEVEL 7-10 Last administered on 09/05/18 16:56; Admin Dose 0.5 MG; Start 09/03/18 at 13:00 Ondansetron HCl (Zofran Inj) 4 mg Q4H PRN IV NAUSEA AND/OR VOMITING Last administered on 09/05/18 19:15; Admin Dose 4 MG; Start 09/03/18 at 20:00 Trimethoprim/ Sulfamethoxazole (Bactrim (Ds)) 1 tab DAILY PO Last administered on 09/05/18at 08:04; Admin Dose 1 TAB; Start 09/05/18 at 09:00 Azithromycin (Zithromax) 1,200 mg Q7D PO Last administered on 09/04/18at 15:17; Admin Dose 1,200 MG; Start 09/04/18 at 15:00 Fluconazole (Diflucan) 200 mg DAILY PO Last administered on 09/05/18at 08:04; Admin Dose 200 MG; Start 09/05/18 at 09:00 Famotidine (Pepcid) 20 mg BID PO ; Start 09/05/18 at 21:00 Magnesium Sulfate 50 ml @ 25 mls/hr ONCE ONCE IVPB ; Start 09/05/18 at 19:00; Stop 09/05/18 at 20:59 DESIRAE PAREDES Sep 05, 2018 19:23
[2018-09-05] MEDS: FAMOTIDINE 20 MG TAB PO SCH (20:47)
[2018-09-06] VITALS (14 sets, daily range): BP systolic 122–169; BP diastolic 74–98; PULSE 37–79; RESP 18–20
[2018-09-06] MEDS: PIPER-TAZO 3.375 GM IV (PMX) 100 ML IVPB SCH ×3 (05:34→23:03)
[2018-09-06] MEDS: D5-NS + KCL 20 MEQ 1,000 ML IV SCH ×4 (05:51→21:48)
--- NOTE | 2018-09-06 07:08 | PN ---
Date/Time of Note Date/Time of Note DATE: 09/06/18 TIME: 07:06 Assessment/Plan VTE Prophylaxis Risk score (from Nsg)>0 risk: 0 SCD applied (from Nsg): Yes Pharmacological prophylaxis: LMWH Lines/Catheters IV Catheter Type (from Nrsg): Peripheral IV Urinary Cath still in place: No Assessment/Plan Assessment/Plan 1. 33-year-old man admitted for nausea and emesis, now doing better. Gram- negative leander urosepsis, now showing ESBL in urine and blood cultures, sensitive only to Zosyn and cefepime. Now day 4 on Zosyn. Renal ultrasound yesterday showed no hydronephrosis, despite bilateral flank tenderness on exam today. 2. Patient had a >2 sec pause yesterday on telemetry, with occasional junctional rhythm. But he had sinus bradycardia overnight (low of 37) with no symptoms. My thanks to Dr. Karen Pang for her thorough evaluation, and I agree with her assessment that his underlying nausea with increased vagal tone. 3. Chest disoomfort, but it appears to be all costochondritis on exam with diffuse tenderness -- likely secondary to bacteremia 4. AIDS with CD4 count less than 150 cells/ul 5. History of opportunistic infections 6. Hypokalemia, resolved yesterday 7. Low TSH, but normal free T4 8. Palatal petechiiae/purpura -- possible [place], no other bruising seen. Normal platelets. * Awaiting recheck on electrolytes, including magnesium this morning * Continue IV Zosyn; will follow-up on blood cultures ordered yesterday by Becca and Dr. Fay, with plan to discharge on two weeks of Zosyn. * Continue Bactrim, fluconazole, weekly azithromycin * Continue antiretroviral -- patient's own Triumeq * Renal ultrasound normal, as noted above * Lovenox for DVT prophylaxis; switch famotidine from IV to PO for GI protection * Discharge planning: I spoke with the patient about a plan to place a PICC line tomorrow. Need to discuss utility of SNF placement vs home nursing. Zahida Montero MD PhD [phone] Result Diagram: 09/05/18 1118 09/05/18 1118 Results 24hrs Laboratory Tests Test 09/05/18 11:18 White Blood Count 3.7 #L Red Blood Count 3.40 L Hemoglobin 10.1 L Hematocrit 31.0 L Mean Corpuscular Volume 91.2 Mean Corpuscular Hemoglobin 29.7 Mean Corpuscular Hemoglobin Concent 32.6 Red Cell Distribution Width 14.0 Platelet Count 128 #L Mean Platelet Volume 10.7 H Immature Granulocytes % 1.100 H Neutrophils % 55.0 Lymphocytes % 26.8 Monocytes % 15.2 H Eosinophils % 1.6 Basophils % 0.3 Nucleated Red Blood Cells % 0.0 Immature Granulocytes # 0.040 H Neutrophils # 2.0 Lymphocytes # 1.0 Monocytes # 0.6 Eosinophils # 0.1 Basophils # 0.0 Nucleated Red Blood Cells # 0.0 Sodium Level 137 Potassium Level 4.2 Chloride Level 106 Carbon Dioxide Level 22 Anion Gap 9 Blood Urea Nitrogen 4 L Creatinine 0.64 Est Glomerular Filtrat Rate mL/min > 60 Glucose Level 104 Calcium Level 8.4 Magnesium Level 1.7 Free Thyroxine 1.12 Subjective 24 Hr Interval Summary Free Text/Dictation Feeling a little better, with less nausea. Still with a pressured feeling in his chest. Did not complain of any dizziness today. Partner José is sleeping at bedside. Exam/Review of Systems Exam Vitals Vital Signs Date Temp Pulse Resp B/P (MAP) Pulse Ox O2 O2 Flow FiO2 Time Delivery Rate 09/06/18 99.1 65 18 143/98 100 04:12 (113) 09/05/18 Room Air 15:35 Intake and Output 09/05/18 09/05/18 09/06/18 1515:00 23:00 07:00 IntakeIntake Total 162.5 ml 1300 ml OutputOutput Total 5 ml BalanceBalance 162.5 ml 1295 ml Exam GENERAL: Well-developed, well-nourished, afebrile, and comfortable-appearing. HEENT: Extraocular muscles are intact. Normal pupils. Sclerae are anicteric. NECK: Supple. No JVD. CHEST: Clear to auscultation bilaterally. CARDIAC: Regular rhythm, normal rate. No murmur. Good peripheral perfusion ABDOMEN: Soft, non-tender, non-distended. Normoactive bowel sounds. UG: Moderate CVA tenderness bilaterally EXTREMITIES: No clubbing, cyanosis or edema. No arthritis NEUROLOGICAL: Alert, oriented, cranial nerves intact. Moving all extremities. Intact speech and memory. Appropriate affect. Results Results 24hrs Laboratory Tests Test 09/05/18 11:18 White Blood Count 3.7 #L Red Blood Count 3.40 L Hemoglobin 10.1 L Hematocrit 31.0 L Mean Corpuscular Volume 91.2 Mean Corpuscular Hemoglobin 29.7 Mean Corpuscular Hemoglobin Concent 32.6 Red Cell Distribution Width 14.0 Platelet Count 128 #L Mean Platelet Volume 10.7 H Immature Granulocytes % 1.100 H Neutrophils % 55.0 Lymphocytes % 26.8 Monocytes % 15.2 H Eosinophils % 1.6 Basophils % 0.3 Nucleated Red Blood Cells % 0.0 Immature Granulocytes # 0.040 H Neutrophils # 2.0 Lymphocytes # 1.0 Monocytes # 0.6 Eosinophils # 0.1 Basophils # 0.0 Nucleated Red Blood Cells # 0.0 Sodium Level 137 Potassium Level 4.2 Chloride Level 106 Carbon Dioxide Level 22 Anion Gap 9 Blood Urea Nitrogen 4 L Creatinine 0.64 Est Glomerular Filtrat Rate mL/min > 60 Glucose Level 104 Calcium Level 8.4 Magnesium Level 1.7 Free Thyroxine 1.12 Medications Medication Current Medications Acetaminophen/ Hydrocodone Bitart ([place] ()) 1 tab Q6 PRN PO PAIN Last administered on 09/04/18at 21:46; Admin Dose 1 TAB; Start 09/02/18 at 20:30 Patient Own Medication 1 ea DAILY PO Last administered on 09/05/18at 08:05; Admin Dose 1 EA; Start 09/03/18 at 09:00 IV Flush (NS 3 ml) 3 ml PER PROTOCOL IV ; Start 09/02/18 at 20:30 Enoxaparin Sodium (Lovenox) 40 mg DAILY SC Last administered on 09/02/18at 22:05; Admin Dose 40 MG; Start 09/02/18 at 22:00 Potassium Chloride/Dextrose/ Sod Cl 1,000 ml @ 125 mls/hr Q8H IV Last administered on 09/06/18at 05:51; Admin Dose 125 MLS/HR; Start 09/02/18 at 21:00 Acetaminophen (Tylenol Tab) 650 mg Q6H PRN PO MILD PAIN(1-3)OR ELEVATED TEMP Last administered on 09/04/18at 04:54; Admin Dose 650 MG; Start 09/03/18 at 07:00 Piperacillin Sod/ Tazobactam Sod 100 ml @ 200 mls/hr Q8 IVPB Last administered on 09/06/18 05:34; Admin Dose 200 MLS/HR; Start 09/03/18 at 14:00 Hydromorphone HCl (Dilaudid) 0.5 mg Q3H PRN IV SEVERE PAIN LEVEL 7-10 Last administered on 09/05/18 21:44; Admin Dose 0.5 MG; Start 09/03/18 at 13:00 Ondansetron HCl (Zofran Inj) 4 mg Q4H PRN IV NAUSEA AND/OR VOMITING Last administered on 09/05/18 19:15; Admin Dose 4 MG; Start 09/03/18 at 20:00 Trimethoprim/ Sulfamethoxazole (Bactrim (Ds)) 1 tab DAILY PO Last administered on 09/05/18 08:04; Admin Dose 1 TAB; Start 09/05/18 at 09:00 Azithromycin (Zithromax) 1,200 mg Q7D PO Last administered on 09/04/18 15:17; Admin Dose 1,200 MG; Start 09/04/18 at 15:00 Fluconazole (Diflucan) 200 mg DAILY PO Last administered on 09/05/18 08:04; Admin Dose 200 MG; Start 09/05/18 at 09:00 Famotidine (Pepcid) 20 mg BID PO Last administered on 09/05/18 20:47; Admin Dose 20 MG; Start 09/05/18 at 21:00 HEATHER MONTERO M.D. Sep 06, 2018 07:08
[2018-09-06] MEDS: FAMOTIDINE 20 MG TAB PO SCH ×2 (07:49→21:00)
[2018-09-06] MEDS: ENOXAPARIN 40 MG/0.4 ML SYG SC SCH (07:49)
[2018-09-06] MEDS: FLUCONAZOLE 200 MG TAB PO SCH (08:05)
[2018-09-06] MEDS: TRIMETHOPRIM/SULFAMETHOX (DS) TAB PO SCH (08:05)
[2018-09-06] MEDS: HYDROmorphONE 0.5 MG/0.5 ML SYG IV PRN ×2 (08:05→20:30)
[2018-09-06] MEDS: LAMIVUDINE PO SCH (08:06)
[2018-09-06] MEDS: [UNRECOGNIZED DRUG - OTHER] PO SCH (08:06)
[2018-09-06] MEDS: DOLUTEGRAVIR PO SCH (08:06)
[2018-09-06] MEDS: ONDANSETRON 4 MG INJ IV PRN ×2 (12:01→20:30)
--- NOTE | 2018-09-06 13:18 | CONS ---
Assessment/Plan Assessment/Plan Hospital Course (Demo Recall) Patient is alert looks comfortable still with bilateral flank pain. No fevers Microbiology: Blood and urine culture growing E. coli ESBL with good susceptibility to Zosyn. Repeat bld cx neg Antimicrobials: Zosyn, fluconazole, Bactrim, Zithromax weekly dose Triumeq Physical examination: This is a wasted well-developed middle-aged man who is alert in no distress. Head atraumatic normocephalic neck is supple chest rise symmetrical breath sounds clear heart S1-S2 abdomen soft bowel sounds present extremities without cyanosis edema Assessment: 1. Sepsis, present on admission 2. Acute pyelonephritis 3. Bacteremia secondary to #2 4. AIDS 5. History of cryptococcal meningitis Plan: Remains stable, on appropriate antibiotic regimen, repeat blood cultures negative, continue abx, await for clinical improvement. Consider PICC. Will check with microbiology tomorrow if bld cx sensitive to Invanz DW pt Consultation Date/Type/Reason Admit Date/Time Sep 02, 2018 at 19:41 Initial Consult Date Type of Consult id Requesting Provider: HEATHER TRIVEDI M.D. Date/Time of Note DATE: 09/06/18 TIME: 13:15 Exam/Review of Systems Exam Vitals Vital Signs Date Temp Pulse Resp B/P (MAP) Pulse Ox O2 O2 Flow FiO2 Time Delivery Rate 09/06/18 71 12:00 09/06/18 98.5 20 161/97 100 High Flow 11:35 (118) Intake and Output 09/05/18 09/05/18 09/06/18 1515:00 23:00 07:00 IntakeIntake Total 162.5 ml 1300 ml 600 ml OutputOutput Total 5 ml BalanceBalance 162.5 ml 1295 ml 600 ml Results Result Diagram: 09/05/18 1118 09/05/18 1118 Medications Medication Current Medications Acetaminophen/ Hydrocodone Bitart ([place] (10/325)) 1 tab Q6 PRN PO PAIN Last administered on 09/04/18at 21:46; Admin Dose 1 TAB; Start 09/02/18 at 20:30 Patient Own Medication 1 ea DAILY PO Last administered on 09/06/18at 08:06; Admin Dose 1 EA; Start 09/03/18 at 09:00 IV Flush (NS 3 ml) 3 ml PER PROTOCOL IV ; Start 09/02/18 at 20:30 Enoxaparin Sodium (Lovenox) 40 mg DAILY SC Last administered on 09/02/18 22:05; Admin Dose 40 MG; Start 09/02/18 at 22:00 Potassium Chloride/Dextrose/ Sod Cl 1,000 ml @ 125 mls/hr Q8H IV Last administered on 09/06/18 05:51; Admin Dose 125 MLS/HR; Start 09/02/18 at 21:00 Acetaminophen (Tylenol Tab) 650 mg Q6H PRN PO MILD PAIN(1-3)OR ELEVATED TEMP Last administered on 09/04/18 04:54; Admin Dose 650 MG; Start 09/03/18 at 07:00 Piperacillin Sod/ Tazobactam Sod 100 ml @ 200 mls/hr Q8 IVPB Last administered on 09/06/18 13:06; Admin Dose 200 MLS/HR; Start 09/03/18 at 14:00 Hydromorphone HCl (Dilaudid) 0.5 mg Q3H PRN IV SEVERE PAIN LEVEL 7-10 Last administered on 09/06/18 08:05; Admin Dose 0.5 MG; Start 09/03/18 at 13:00 Ondansetron HCl (Zofran Inj) 4 mg Q4H PRN IV NAUSEA AND/OR VOMITING Last administered on 09/06/18 12:01; Admin Dose 4 MG; Start 09/03/18 at 20:00 Trimethoprim/ Sulfamethoxazole (Bactrim (Ds)) 1 tab DAILY PO Last administered on 09/06/18 08:05; Admin Dose 1 TAB; Start 09/05/18 at 09:00 Azithromycin (Zithromax) 1,200 mg Q7D PO Last administered on 09/04/18 15:17; Admin Dose 1,200 MG; Start 09/04/18 at 15:00 Fluconazole (Diflucan) 200 mg DAILY PO Last administered on 09/06/18 08:05; Admin Dose 200 MG; Start 09/05/18 at 09:00 Famotidine (Pepcid) 20 mg BID PO Last administered on 09/05/18at 20:47; Admin Dose 20 MG; Start 09/05/18 at 21:00 AZALEA HUBER NP Sep 06, 2018 13:18
--- NOTE | 2018-09-06 19:59 | CONS ---
Assessment/Plan Assessment/Plan Hospital Course (Demo Recall) 33 yo with HIV and sepsis with nausea/vomiting with bradyarrhythmias that have resolved with improvement of his nausea. This was vagally mediated. Will sign off. Call if questions arise. Consultation Date/Type/Reason Admit Date/Time Sep 02, 2018 at 19:41 Initial Consult Date 09/05/18 Type of Consult Cardiology Requesting Provider: HEATHER TRIVEDI M.D. Date/Time of Note DATE: 09/06/18 TIME: 19:57 24 HR Interval Summary Free Text/Dictation Patient stating he is feeling better, less nauseated. Telemetry reviewed and he is in NSR at 75 bpm. No bradycardia today. Exam/Review of Systems Vital Signs Vitals Vital Signs Date Temp Pulse Resp B/P (MAP) Pulse Ox O2 O2 Flow FiO2 Time Delivery Rate 09/06/18 70 16:00 09/06/18 98.9 18 127/82 100 Room Air 15:55 (97) Intake and Output 09/05/18 09/05/18 09/06/18 1515:00 23:00 07:00 IntakeIntake Total 162.5 ml 1300 ml 600 ml OutputOutput Total 5 ml BalanceBalance 162.5 ml 1295 ml 600 ml Exam Constitutional: alert, oriented, well developed Head: normocephalic, atraumatic Eyes: nl sclera ENMT: nl external ears & nose Cardiovascular: No murmurs/extra sounds Neurological: nl mental status, nl speech Skin: No rash or lesions Labs Result Diagram: 09/05/18 1118 09/06/18 1448 Results 24hrs Laboratory Tests Test 09/06/18 14:48 Sodium Level 138 Potassium Level 3.3 L Chloride Level 103 Carbon Dioxide Level 27 Anion Gap 8 Blood Urea Nitrogen 3 L Creatinine 0.72 Est Glomerular Filtrat Rate mL/min > 60 Glucose Level 125 Calcium Level 8.2 L Magnesium Level 1.6 L Medications Medications Current Medications Acetaminophen/ Hydrocodone Bitart ([place] (10/325)) 1 tab Q6 PRN PO PAIN Last administered on 09/04/18at 21:46; Admin Dose 1 TAB; Start 09/02/18 at 20:30 Patient Own Medication 1 ea DAILY PO Last administered on 09/06/18at 08:06; Admin Dose 1 EA; Start 09/03/18 at 09:00 IV Flush (NS 3 ml) 3 ml PER PROTOCOL IV ; Start 09/02/18 at 20:30 Enoxaparin Sodium (Lovenox) 40 mg DAILY SC Last administered on 09/02/18 22:05; Admin Dose 40 MG; Start 09/02/18 at 22:00 Potassium Chloride/Dextrose/ Sod Cl 1,000 ml @ 125 mls/hr Q8H IV Last administered on 09/06/18 15:21; Admin Dose 125 MLS/HR; Start 09/02/18 at 21:00 Acetaminophen (Tylenol Tab) 650 mg Q6H PRN PO MILD PAIN(1-3)OR ELEVATED TEMP Last administered on 09/04/18 04:54; Admin Dose 650 MG; Start 09/03/18 at 07:00 Piperacillin Sod/ Tazobactam Sod 100 ml @ 200 mls/hr Q8 IVPB Last administered on 09/06/18 13:06; Admin Dose 200 MLS/HR; Start 09/03/18 at 14:00 Hydromorphone HCl (Dilaudid) 0.5 mg Q3H PRN IV SEVERE PAIN LEVEL 7-10 Last administered on 09/06/18 08:05; Admin Dose 0.5 MG; Start 09/03/18 at 13:00 Ondansetron HCl (Zofran Inj) 4 mg Q4H PRN IV NAUSEA AND/OR VOMITING Last administered on 09/06/18 12:01; Admin Dose 4 MG; Start 09/03/18 at 20:00 Trimethoprim/ Sulfamethoxazole (Bactrim (Ds)) 1 tab DAILY PO Last administered on 09/06/18 08:05; Admin Dose 1 TAB; Start 09/05/18 at 09:00 Azithromycin (Zithromax) 1,200 mg Q7D PO Last administered on 09/04/18 15:17; Admin Dose 1,200 MG; Start 09/04/18 at 15:00 Fluconazole (Diflucan) 200 mg DAILY PO Last administered on 09/06/18 08:05; Admin Dose 200 MG; Start 09/05/18 at 09:00 Famotidine (Pepcid) 20 mg BID PO Last administered on 09/05/18at 20:47; Admin Dose 20 MG; Start 09/05/18 at 21:00 DESIRAE PAREDES Apr 21, 2019 19:59
[2018-09-07] VITALS (7 sets, daily range): BP systolic 119–139; BP diastolic 73–82; PULSE 58–90; RESP 18–20
[2018-09-07] MEDS: D5-NS + KCL 20 MEQ 1,000 ML IV SCH (05:00)
[2018-09-07] MEDS: PIPER-TAZO 3.375 GM IV (PMX) 100 ML IVPB SCH (05:36)
[2018-09-07] MEDS: ENOXAPARIN 40 MG/0.4 ML SYG SC SCH (09:00)
[2018-09-07] MEDS ORDERED: MAGNESIUM SULFATE 4 GM/100 ML 100 ML IVPB ONE (10:00)
[2018-09-07] MEDS ORDERED: LIDOCAINE 1% (MPF) 5 ML VIAL SC ONE ×2 (10:00→11:30)
[2018-09-07] MEDS ORDERED: AZIT600T4 PO (10:47)
[2018-09-07] MEDS ORDERED: FLUC200T PO (10:47)
[2018-09-07] MEDS: LAMIVUDINE PO SCH (10:48)
[2018-09-07] MEDS ORDERED: CEFE1PIG IVPB (10:48)
[2018-09-07] MEDS: DOLUTEGRAVIR PO SCH (10:48)
[2018-09-07] MEDS: [UNRECOGNIZED DRUG - OTHER] PO SCH (10:48)
[2018-09-07] MEDS: FLUCONAZOLE 200 MG TAB PO SCH (10:49)
[2018-09-07] MEDS: FAMOTIDINE 20 MG TAB PO SCH (10:49)
--- NOTE | 2018-09-07 10:49 | PDOCDIS ---
Discharge Instructions CONDITION [id number] Patient Condition: [id number] Good HOME CARE INSTRUCTIONS: [id number] Diet Instructions: [id number] Regular ACTIVITY: [id number] Activity Restrictions: [id number] No Restrictions FOLLOW UP/APPOINTMENTS Follow-up Plan pcp [address] Fountain 1 week RAJ BARAHONA MD Sep 07, 2018 10:49
[2018-09-07] MEDS: TRIMETHOPRIM/SULFAMETHOX (DS) TAB PO SCH (10:50)
--- NOTE | 2018-09-07 13:14 | DS ---
DATE OF ADMISSION: 09/02/2018 DATE OF DISCHARGE: 09/07/2018 DISCHARGE DIAGNOSES: 1. A 33-year-old male with multidrug resistant Escherichia coli urosepsis. 2. Acquired immunodeficiency syndrome with CD4 count less than 150. 3. History of opportunistic infections in the past. 4. Hypokalemia, resolved. HOSPITAL COURSE: A 33-year-old male with a long history of AIDS and CD4 count less than 150, on anti retroviral therapy, presented to emergency room with complaint of generalized weakness and palpitatio ns and fever. The patient was eventually diagnosed with E. coli urosepsis. The organism was multi-r esistant to multiple antibiotics. It was sensitive to cefepime. The case was discussed with infecti ous disease specialist. The patient will be treated with IV cefepime for additional 10 days followin g discharge. PICC line was ordered. Infectious disease specialist also added Diflucan due to previo us history of cryptococcal meningitis as well as weekly Zithromax. The patient is stable for dischar ge. MEDICATIONS ON DISCHARGE: As follows: 1. Zithromax 1200 mg every 7 days. 2. Fluconazole 200 mg daily. 3. Triumeq 1 tablet daily. 4. Bactrim 2 tablets daily. 5. Cefepime 1 gram IV piggyback q.12 hours for 10 days. 6. [place] as needed. FOLLOWUP: 1. Follow up with PCP in 1 week. 2. Follow up with Dr. Shepard in 1 week. Dictated By: RAJ LOVELL/NTS Conf#: [id number] DID#: [id number] CC: HEATHER TRIVEDI MD; JAYCE SHEPARD MD;*[facility]*
--- NOTE | 2018-09-07 14:36 | CONS ---
Assessment/Plan Assessment/Plan Hospital Course (Demo Recall) Alert, feels better, s/p PICC Microbiology: Blood and urine culture growing E. coli ESBL with good susceptibility to Zosyn. Repeat bld cx neg Antimicrobials: Zosyn, fluconazole, Bactrim, Zithromax weekly dose Triumeq Physical examination: This is a wasted well-developed middle-aged man who is alert in no distress. Head atraumatic normocephalic neck is supple chest rise symmetrical breath sounds clear heart S1-S2 abdomen soft bowel sounds present extremities without cyanosis edema Assessment: 1. Sepsis, present on admission 2. Acute pyelonephritis 3. Bacteremia secondary to #2 4. AIDS 5. History of cryptococcal meningitis Plan: Remains stable, pending dc home with IV abx to complete 2 weeks DW pt Consultation Date/Type/Reason Admit Date/Time Sep 02, 2018 at 19:41 Initial Consult Date Type of Consult id Requesting Provider: HEATHER TRIVEDI M.D. Date/Time of Note DATE: 09/07/18 TIME: 14:35 Exam/Review of Systems Exam Vitals Vital Signs Date Temp Pulse Resp B/P (MAP) Pulse Ox O2 O2 Flow FiO2 Time Delivery Rate 09/07/18 97.5 82 20 129/82 100 11:38 (98) 09/07/18 Room Air 04:12 Intake and Output 09/06/18 09/06/18 09/07/18 1515:00 23:00 07:00 IntakeIntake Total 3250 ml OutputOutput Total 5 ml BalanceBalance 3245 ml Results Result Diagram: 09/05/18 1118 09/06/18 1448 Results 24hrs Laboratory Tests Test 09/06/18 14:48 Sodium Level 138 Potassium Level 3.3 L Chloride Level 103 Carbon Dioxide Level 27 Anion Gap 8 Blood Urea Nitrogen 3 L Creatinine 0.72 Est Glomerular Filtrat Rate mL/min > 60 Glucose Level 125 Calcium Level 8.2 L Magnesium Level 1.6 L Medications Medication Current Medications Acetaminophen/ Hydrocodone Bitart ([place] (10/325)) 1 tab Q6 PRN PO PAIN Last administered on 09/04/18at 21:46; Admin Dose 1 TAB; Start 09/02/18 at 20:30 Patient Own Medication 1 ea DAILY PO Last administered on 09/07/18at 10:48; Admin Dose 1 EA; Start 09/03/18 at 09:00 IV Flush (NS 3 ml) 3 ml PER PROTOCOL IV ; Start 09/02/18 at 20:30 Enoxaparin Sodium (Lovenox) 40 mg DAILY SC Last administered on 09/02/18 22:05; Admin Dose 40 MG; Start 09/02/18 at 22:00 Potassium Chloride/Dextrose/ Sod Cl 1,000 ml @ 125 mls/hr Q8H IV Last administered on 09/06/18 21:48; Admin Dose 125 MLS/HR; Start 09/02/18 at 21:00 Acetaminophen (Tylenol Tab) 650 mg Q6H PRN PO MILD PAIN(1-3)OR ELEVATED TEMP Last administered on 09/04/18 04:54; Admin Dose 650 MG; Start 09/03/18 at 07:00 Piperacillin Sod/ Tazobactam Sod 100 ml @ 200 mls/hr Q8 IVPB Last administered on 09/07/18 05:36; Admin Dose 200 MLS/HR; Start 09/03/18 at 14:00 Hydromorphone HCl (Dilaudid) 0.5 mg Q3H PRN IV SEVERE PAIN LEVEL 7-10 Last administered on 09/06/18 20:30; Admin Dose 0.5 MG; Start 09/03/18 at 13:00 Ondansetron HCl (Zofran Inj) 4 mg Q4H PRN IV NAUSEA AND/OR VOMITING Last administered on 09/06/18 20:30; Admin Dose 4 MG; Start 09/03/18 at 20:00 Trimethoprim/ Sulfamethoxazole (Bactrim (Ds)) 1 tab DAILY PO Last administered on 09/07/18 10:50; Admin Dose 1 TAB; Start 09/05/18 at 09:00 Azithromycin (Zithromax) 1,200 mg Q7D PO Last administered on 09/04/18 15:17; Admin Dose 1,200 MG; Start 09/04/18 at 15:00 Fluconazole (Diflucan) 200 mg DAILY PO Last administered on 09/07/18 10:49; Admin Dose 200 MG; Start 09/05/18 at 09:00 Famotidine (Pepcid) 20 mg BID PO Last administered on 09/07/18 10:49; Admin Dose 20 MG; Start 09/05/18 at 21:00 AZALEA HUBER NP Sep 07, 2018 14:36
== END 2018-09-07 15:40 | disposition home health service (06) | DRG 975 ==
LOC: E/R 14:05 → 6WM 19:41
PROVIDERS: ADMIT Internal Medicine; ATTEND Internal Medicine
PROC: 02HV33Z Insertion of Infusion Device into Superior Vena Cava, Percutaneous Approach (ICD-10-PCS; principal; 2018-09-07)
DX: B20 Human immunodeficiency virus [HIV] disease (principal); A41.51 Sepsis due to Escherichia coli [E. coli]; R64 Cachexia; Z68.1 Body mass index [BMI] 19.9 or less, adult; N10 Acute pyelonephritis; E87.1 Hypo-osmolality and hyponatremia; E87.6 Hypokalemia; R00.1 Bradycardia, unspecified; E83.42 Hypomagnesemia; D69.2 Other nonthrombocytopenic purpura; R07.89 Other chest pain; Z86.61 Personal history of infections of the central nervous system; Z16.24 Resistance to multiple antibiotics
CPT/HCPCS: 36415; 36569; 71045; 76775; 76937; 80048; 80053; 81001; 82550; 82553; 83036; 83605; 83735; 84439; 84443; 84484; 85025; 85610; 85730; 86360; 87086; 93005; 96365; 96375; J0692; J1170; J1650; J1885; J2405; J2543; J3010; J3370; J3475; J3480; J7030